=== PATIENT | male | born 1985 | race Caucasian/White ===

== ENCOUNTER 2017-07-12 14:28 | Inpatient (IN) | payer OTHER ==
[~2017-07-12] VITALS: Ht 180.3 cm; Wt 66.2 kg
[2017-07-12] MEDS ORDERED: LORAZEPAM 1 MG TABLET PO PRN ×2 (19:00)
[2017-07-12] MEDS ORDERED: MIRALAX 17 GM POWD.PACK PO PRN (19:00)
[2017-07-12] MEDS ORDERED: MAG HYDROX/AL HYDROX/SIMETH 30 ML LIQUID UDC PO PRN (19:00)
[2017-07-12] MEDS ORDERED: ACETAMINOPHEN 325 MG TABLET PO PRN (19:00)
[2017-07-12] MEDS ORDERED: CLONIDINE HCL 0.1 MG TABLET PO PRN (19:00)
[2017-07-12] MEDS ORDERED: LORAZEPAM 2 MG/1 ML VIAL IM PRN (19:00)
[2017-07-12] MEDS ORDERED: MAGNESIUM HYDROXIDE 30 ML LIQUID UDC PO PRN (19:00)
[2017-07-12] MEDS ORDERED: diphenhydrAMINE 50 MG CAPSULE PO PRN (19:00)
[2017-07-12] MEDS ORDERED: ONDANSETRON 4 MG/2 ML VIAL IM PRN (19:00)
[2017-07-12] MEDS ORDERED: ONDANSETRON ODT 4 MG TAB.RAPDIS SL PRN (19:00)
[2017-07-12] MEDS ORDERED: LOPERAMIDE HCL 2 MG CAPSULE PO PRN ×2 (19:00)
[2017-07-12] MEDS ORDERED: DICYCLOMINE HCL 20 MG TABLET PO PRN (19:00)
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
--- NOTE | 2017-07-12 19:53 | NUR ---
1951 ADMISSION NOTE: Patient admitted ambulatory, to [facility], Room # 311, after being given a brief tour of floor and kitchen, by PLUMBING ENGINEER. Patient's gait is steady. Patient is 5 feet and 11 inches tall and he weighs 146 lbs. Patient is admitted for Alcohol Withdrawal and he states that he has been drinking " a handle of Vodka (1.75ml) everyday for the past 4 months. Patient states that his last drink was 1 pint of Vodka this morning(07/12/17). Patient states that he has been drinking on and off since age 15 and he began to drink steadily a few years ago. Patient states that his longest period of sobriety was about 6 months, in 2012. Vital signs are: 98.5-102-18 128/92, CIWA 3. Patient's color is slightly pale pink and his skin is clean, warm, dry and intact. Patient states that he " feels safe here" at [facility] with " a more controlled-like environment here". Patient states that he was recently in [facility] in [place], [place] for 1 day, on 07/09/17, " in the psych [facility], but I left after one day there". Patient states that his only official detox treatment was in October, for 10 days, in [place], [place] at " [facility]". Patient's medications brought from his home were reconciled per floor protocol. Patient oriented to his room and nurse call light. Patient saw Dr. Moss in [facility] Intake room. See PREADMISSION NOTE for complete patient admit information.
[2017-07-12 20:00] VITALS: BP 128/92
[2017-07-12] MEDS ORDERED: hydrALAZINE HCL 50 MG TABLET PO PRN (20:00)
--- NOTE | 2017-07-12 20:48 | NUR ---
MARGARETH Lewis Pt reports right sided flank pain 01/29. MARGARETH Richardsrin administered. Addendum: 07/14/17 at 0642 by TAHIR PAGAN RN Disregard - Incorrect date.
[2017-07-12] MEDS ORDERED: LORAZEPAM 1 MG TABLET PO ONE (21:00)
[2017-07-12] MEDS ORDERED: THIAMINE HCL 200 MG/2 ML VIAL IM ONE (21:00)
[2017-07-12] MEDS: LEVETIRACETAM 500 MG TABLET PO SCH (21:19)
[2017-07-12] MEDS: GABAPENTIN 300 MG CAPSULE PO SCH (21:19)
[2017-07-12 22:21] LABS: *AMPHETAMINE, URINE NEGATIVE (NEGATIVE); *BARBITURATE, URINE NEGATIVE (NEGATIVE); *CANNABINOID, URINE NEGATIVE (NEGATIVE); *COCCAINE, URINE NEGATIVE (NEGATIVE); *OPIATE, URINE NEGATIVE (NEGATIVE); *PHENCYCLIDINE SCREEN,URINE NEGATIVE (NEGATIVE)
[2017-07-12] MEDS ORDERED: LISI-607 PO (23:37)
[2017-07-12] MEDS ORDERED: TRAZ-147 PO (23:37)
[2017-07-12] MEDS ORDERED: PIOG15TA8 PO (23:37)
[2017-07-12] MEDS ORDERED: LEVE500T20 PO (23:37)
[2017-07-12] MEDS ORDERED: GABA-534 PO (23:37)
[2017-07-12] MEDS ORDERED: TRAM50TA2 PO (23:37)
[2017-07-12] MEDS ORDERED: TRAZ-144 PO (23:37)
[2017-07-12] MEDS ORDERED: CITA20TA11 PO (23:37)
[2017-07-12] MEDS ORDERED: HYDR-3326 PO (23:37)
[2017-07-12] MEDS ORDERED: METF10002 PO (23:37)
[2017-07-13] VITALS: BP 106/68
[2017-07-13 00:03] LABS: BASOPHILS % (AUTO) 0.6 % (0.0-2.0); EOSINOPHILS % (AUTO) 0.8 % (0.0-7.0); HEMATOCRIT 35.7 % (40-50); LYMPHOCYTES # (AUTO) 1.9 K/UL (0.8-4.8); LYMPHOCYTES % (AUTO) 50.3 % (20.5-51.5); MEAN CORPUSCULAR HEMOGLOBIN 32.1 UUG (27.0-31.0); MEAN CORPUSCULAR HGB CONC 34 g/dL (32.0-37.0); MEAN CORPUSCULAR VOLUME 95.9 FL (82.0-92.0); MONOCYTES # (AUTO) 0.3 K/UL (0.1-1.30); MONOCYTES % (AUTO) 7.9 % (0.0-11.0); NEUTROPHILS # (AUTO) 1.5 K/UL (1.8-8.9); NEUTROPHILS % (AUTO) 40.4 % (38.5-71.5); PLATELET COUNT (AUTO) 104 K/UL (150-450); RED BLOOD CELL COUNT(AUTO) 3.72 MIL/UL (4.7-6.1); WHITE BLOOD COUNT (AUTO) 3.7 K/UL (4.0-11.2)
[2017-07-13 00:15] LABS: BILIRUBIN,TOTAL 0.6 mg/dL (0.2-1.0); CREATININE 0.8 mg/dL (0.6-1.3); MAGNESIUM 1.3 mg/dL (1.8-2.4); POTASSIUM 3.9 mmol/L (3.5-5.1); TOTAL PROTEIN, SERUM 6.2 g/dL (6.4-8.2)
[2017-07-13 04:00] VITALS: BP 114/71
--- NOTE | 2017-07-13 04:00 | NUR ---
V/S are: 97.8-81-12 114/71, O2 Sat 96%, CIWA 1. Patient sleeping comfortably.
--- NOTE | 2017-07-13 06:30 | NUR ---
0630 Patient slept a total of 9 hours and he had 1 void and no stools. Total intake was 590 ml p.o. No prn medications given this shift. V/SS afebrile, last CIWA 1 at 0400. Patient is presently sleeping comfortably in stable condition with eyes closed and respirations even at 112.
--- NOTE | 2017-07-13 07:05 | NUR ---
Patient sleeping soundly. CIWA deferred as CIWA ordered Q 4hrs while awake.
--- NOTE | 2017-07-13 07:29 | NUR ---
Accucheck results via fingerstick is 225.
[2017-07-13 08:00] VITALS: BP 113/79
--- NOTE | 2017-07-13 08:00 | NUR ---
VSS 98.3-72-18 TO 22 BP 113/79. SATS 98% ON ROOM AIR. COLOR GOOD. A&O X 3 WITH NOTABLE NERVOUSNESS AND RESTLESS. PATIENT IS SELF MANAGING HIS ANXIETY AND WAITING PATIENTLY NURSE COMPLETES NURSING TASKS AND ASSESSMENTS. PATIENT MAKES GOOD EYE TO EYE CONTACT. OOB WITH SELF CARE AND ADLS WITHOUT ASSIST. ATE ONLY 15% ON BREAKFAST WITH NAUSEA AND SPIT-LIKE EMESIS X 1. CIWA=27. PHYSICIAN PERFORMING HIS OWN CIWA EXAM WELL.
[2017-07-13] MEDS ORDERED: TUBERCULIN,PURIF.PROT.DERIV. 5 TU/0.1 ML TEST ID ONE (09:00)
[2017-07-13] MEDS: METFORMIN HCL 500 MG TABLET PO SCH ×2 (10:23→17:12)
[2017-07-13] MEDS: LEVETIRACETAM 500 MG TABLET PO SCH ×2 (10:24→20:45)
[2017-07-13] MEDS: FOLIC ACID 1 MG TABLET PO SCH (10:24)
--- NOTE | 2017-07-13 10:24 | NUR ---
NURSE PLACED PPD TO RIGHT INNER FOREARM. TOOL PUSHER=ROSARIO, LOT #[id number], EXP=10/10. PATIENT GIVEN EDUCATION ON THE VACCINE AND FACT THAT THE NURSES WILL RE-READ HIS TEST IN 48 HOURS. NURSE GIVEN THE INSTRUCTION TO REPORT ANY ERUPTION, BLEEDING, DRAINAGE, OR ANY OTHER IRREGULARITIES IN THE SITE. Addendum: 07/13/17 at 1125 by CHRISTIAN GRUBBS RN NURSE ALSO SPOKE WITH AN ADULT FEMALE ON THE PHONE WHO CLAIMED TO BE THIS PATIENT'S MOTHER. NURSE HAD TO TELL PATIENT THAT VERBAL REPORT IS LIMITED DUE TO HIPPA LAWS. PATIENT WAS PLEASANT, COOPERATIVE AND RESPONDED WELL TO THIS REPORT. PATIENT WAS ALSO INFORMED OF THIS PHONE CALL. PATIENT SHOWS NO SIGNS OF ACUTE CARDIAC/RESPIRATORY DISTRESS OR SUPPRESSION.
[2017-07-13] MEDS: MULTIVITAMINS,THERAPEUTIC TABLET PO SCH (10:25)
[2017-07-13] MEDS: LORAZEPAM 1 MG TABLET PO SCH ×4 (10:25→20:44)
[2017-07-13] MEDS: LISINOPRIL 10 MG TABLET PO SCH (10:26)
[2017-07-13] MEDS: THIAMINE HCL 100 MG TABLET PO SCH (10:27)
[2017-07-13] MEDS: PIOGLITAZONE HCL 15 MG TABLET PO SCH (10:33)
[2017-07-13] MEDS: GABAPENTIN 300 MG CAPSULE PO SCH ×3 (10:33→20:46)
[2017-07-13 12:00] VITALS: BP 141/82
--- NOTE | 2017-07-13 12:00 | NUR ---
VSS 97.8-84 22 BP 141/82. SATS 98% ON ROOM AIR. PATIENT ATTENDS MULTIPLE ACTIVITIES BUT IS SEEN FREQUENTLY IN STABLE CONDITION. PATIENT SHOWS NO SIGNS OF ACUTE WITHDRAWAL. NO SIGNS OF ACUTE CARDIAC/RESPIRATORY DISTRESS OR SUPPRESSION.
[2017-07-13] MEDS: CITALOPRAM 20 MG TABLET PO SCH (13:51)
[2017-07-13 16:00] VITALS: BP 135/97
--- NOTE | 2017-07-13 16:00 | NUR ---
VSS 98.6-110-20 BP 135/97. SATS 98% ON ROOM AIR. COLOR GOOD. PATIENT IS ALERT & ORIENTED. PATIENT HAS BEEN ATTENDING ACTIVITIES ALL DAY AND HIS GENERAL APPEARANCE HAS IMPROVED. HE APPEARS MORE AT EASE AND HIS COLOR IS FAR BETTER THAN THE START OF SHIFT THE PATIENT'S CIWA WENT FROM 27 IN THE MORNING TO 21 @ 16:00. PATIENT SHOWS NO SIGNS OF ACUTE CARDIAC/RESPIRATORY DISTRESS OR SUPPRESSION.
[2017-07-13] MEDS ORDERED: TRAZODONE 100 MG TABLET PO SCH (18:00)
[2017-07-13] MEDS ORDERED: TRAZODONE 50 MG TABLET PO SCH (18:00)
--- NOTE | 2017-07-13 19:55 | NUR ---
START OF SHIFT Received report from day shift nurse. Pt attended a group meeting and returned to his room after. He is a 31 yo male admitted to [facility] on 07/12 for ETOH withdrawal. He is A&O x4 and ambulatory. NKA, full code status, and on a consistent carb diet. PMH of DM Type II, HTN, neuropathy, seizure disorder, herniated disc, anxiety, and depression. On admission he reported drinking vodka 1.75mL per day. 5 day Ativan taper started today. He reports anxiety, one episode of vomiting after dinner, sweating, and is observed with hand tremors. No s/s of hyper/hypoglycemia. Taper due tonight. Fall and seizure precautions in place. Bed is down with call light in reach. Addendum: 07/14/17 at 2340 by TAHIR PAGAN RN Correction: Pt drinks 1.75L per day.
[2017-07-13 20:00] VITALS: BP 138/96
[2017-07-13] MEDS ORDERED: LORAZEPAM 1 MG TABLET PO PRN ×2 (20:00)
--- NOTE | 2017-07-13 20:16 | NUR ---
Mag Ox 800mg administered per orders
[2017-07-13] MEDS: TRAZODONE 100 MG TABLET PO SCH (20:45)
[2017-07-13] MEDS: IBUPROFEN 400 MG TABLET PO PRN (20:46)
--- NOTE | 2017-07-13 20:48 | NUR ---
PRN Motrin Pt reports right sided flank pain 01/29. PRN Motrin administered.
--- NOTE | 2017-07-13 20:50 | NUR ---
PRN Zofran Pt reports one episode of vomiting after dinner and continued nausea.
[2017-07-13] MEDS ORDERED: MAGNESIUM OXIDE 400 MG TABLET PO ONE (21:00)
--- NOTE | 2017-07-13 21:20 | NUR ---
PRN Zofran reassessment PRN Zofran effective. Pt reports nausea is relieved.
--- NOTE | 2017-07-13 21:48 | NUR ---
PRN Motrin reassessment PRN Motrin effective. Pt reports right side flank pain is reduced to 2/10.
[2017-07-14] VITALS: BP 107/70
--- NOTE | 2017-07-14 | NUR ---
0000 CIWA deferred CIWA ordered Q4HWA. Pt is lying in bed resting with eyes closed. Respirations even and unlabored. Vital signs obtained. Safety measures in place.
[2017-07-14 04:00] VITALS: BP 100/66
--- NOTE | 2017-07-14 04:00 | NUR ---
0400 CIWA deferred CIWA ordered Q4HWA. Pt is lying in bed resting with eyes closed. Respirations even and unlabored. Vital signs obtained. Safety measures in place.
--- NOTE | 2017-07-14 07:00 | NUR ---
Start of Shift Endorsement received from nightshift nurse. Pt is a 31 y/o male admitted for alcohol dependence. Pt has been placed on a 5 day Ativan taper. Pt reports Hx of a seizures. Pt is tolerating the taper and moderately withdrawing AEB CIWA 7. Pt reports sleeping 8 hours. PT received PRN Zofran and Motrin. VS WNL. Full Code. PT is alert and oriented x4. Pt is in STABLE condition at this time. Remains compliant with medication and diet regimen. All needs have been met, All safety measures in place per hospital policy. Bed in lowest position, side rails up x2, call-light within reach. Will continue to monitor
[2017-07-14 07:06] LABS: HEPATITIS B SURFACE AG Negative (Negative)
--- NOTE | 2017-07-14 07:22 | NUR ---
END OF SHIFT Report provided to day shift nurse. Pt is lying in bed resting. He is a 31 yo male admitted to [facility] on 07/12 for ETOH withdrawal. He is A&O and ambulatory. NKA, full code status, and on a consistent carb diet. PMH of DM Type II, HTN, neuropathy, seizure disorder, herniated disc, anxiety, and depression. On admission he reported drinking vodka 1.75mL per day. 5 day Ativan taper started today. He is compliant with treatment. PRN Motrin and Zofran administered. Last CIWA 7 before night meds. No s/s of hyper/hypoglycemia. Mag Ox administered per orders. He is observed with facial flushing. He drank 355mL and slept for 8 hours. Fall and seizure precautions in place. Bed is down with call light in reach.
[2017-07-14 07:38] LABS: BASOPHILS % (AUTO) 0.2 % (0.0-2.0); EOSINOPHILS # (AUTO) 0.1 K/uL (0.0-0.7); EOSINOPHILS % (AUTO) 3.5 % (0.0-7.0); HEMATOCRIT 36.9 % (40-50); HEMOGLOBIN 12.3 G/DL (14.0-18.0); LYMPHOCYTES # (AUTO) 1.6 K/UL (0.8-4.8); LYMPHOCYTES % (AUTO) 47.1 % (20.5-51.5); MEAN CORPUSCULAR HEMOGLOBIN 31.9 UUG (27.0-31.0); MEAN CORPUSCULAR HGB CONC 33 g/dL (32.0-37.0); MEAN CORPUSCULAR VOLUME 95.7 FL (82.0-92.0); MONOCYTES # (AUTO) 0.3 K/UL (0.1-1.30); MONOCYTES % (AUTO) 9.1 % (0.0-11.0); NEUTROPHILS # (AUTO) 1.3 K/UL (1.8-8.9); NEUTROPHILS % (AUTO) 40.1 % (38.5-71.5); PLATELET COUNT (AUTO) 82 K/UL (150-450); RED BLOOD CELL COUNT(AUTO) 3.86 MIL/UL (4.7-6.1); WHITE BLOOD COUNT (AUTO) 3.3 K/UL (4.0-11.2)
[2017-07-14 08:00] VITALS: BP 105/66
[2017-07-14 08:30] LABS: ALANINE AMINOTRANSFERASE 44 U/L (16-63); ALKALINE PHOSPHATASE 76 U/L (50-136); ASPARTATE AMINOTRANSFERASE 77 U/L (15-37); BILIRUBIN,DIRECT 0.3 mg/dL (0.0-0.2); CARBON DIOXIDE 31 mmol/L (21-32); CHLORIDE 99 mmol/L (98-107); CREATININE 0.6 mg/dL (0.6-1.3); GLUCOSE 215 mg/dL (74-106); MAGNESIUM 1.5 mg/dL (1.8-2.4); PHOSPHOROUS 4.5 mg/dL (2.5-4.9); POTASSIUM 3.5 mmol/L (3.5-5.1); TOTAL PROTEIN, SERUM 6.3 g/dL (6.4-8.2); UREA NITROGEN, BLOOD 10 mg/dL (7-18)
[2017-07-14] MEDS: PIOGLITAZONE HCL 15 MG TABLET PO SCH (08:32)
[2017-07-14] MEDS: GABAPENTIN 300 MG CAPSULE PO SCH ×3 (08:33→20:21)
[2017-07-14] MEDS: LORAZEPAM 1 MG TABLET PO SCH ×3 (08:33→20:18)
[2017-07-14] MEDS: LISINOPRIL 10 MG TABLET PO SCH (08:33)
[2017-07-14] MEDS: CITALOPRAM 20 MG TABLET PO SCH (08:33)
[2017-07-14] MEDS: THIAMINE HCL 100 MG TABLET PO SCH (08:33)
[2017-07-14] MEDS: MULTIVITAMINS,THERAPEUTIC TABLET PO SCH (08:33)
[2017-07-14] MEDS: LEVETIRACETAM 500 MG TABLET PO SCH ×2 (08:33→20:20)
[2017-07-14] MEDS: METFORMIN HCL 500 MG TABLET PO SCH ×2 (08:34→18:12)
[2017-07-14] MEDS: FOLIC ACID 1 MG TABLET PO SCH (08:34)
[2017-07-14 09:09] LABS: BAND % (MANUAL) 1 % (0-10); EOSINOPHILS % (MANUAL) 2 % (0-8); LYMPHOCYTES % (MANUAL) 47 % (20-40); MONOCYTES % (MANUAL) 7 % (2-10); NEUTROPHILS % (MANUAL) 43 % (42-75)
[2017-07-14 12:00] VITALS: BP 129/86
[2017-07-14] MEDS ORDERED: LORAZEPAM 1 MG TABLET PO ONE (13:00)
[2017-07-14] MEDS ORDERED: MAGNESIUM OXIDE 400 MG TABLET PO ONE (13:15)
--- NOTE | 2017-07-14 13:20 | NUR ---
Therapist was prompted to come to group today. Client agreed to attend.
[2017-07-14] MEDS: MAGNESIUM OXIDE 400 MG TABLET PO SCH ×2 (15:23→20:20)
[2017-07-14 16:00] VITALS: BP 124/93
--- NOTE | 2017-07-14 18:51 | NUR ---
End of Shift Endorsement given to nightshift nurse. Pt is a 31 y/o male admitted for alcohol dependence. Pt has been placed on a 5 day Ativan taper. Pt reports Hx of a seizures. Pt is tolerating the taper and moderately withdrawing AEB CIWA 5. Pt participated in groups and activities. PT did not receive any PRN medications. Educated pt on diet and medication regimen. Intake: 1950ml, Void x4, BM x1. VS WNL. Full Code. PT is alert and oriented x4. Pt is in STABLE condition at this time. Remains compliant with medication and diet regimen. All needs have been met, All safety measures in place per hospital policy. Bed in lowest position, side rails up x2, call-light within reach. Will continue to monitor
--- NOTE | 2017-07-14 19:55 | NUR ---
START OF SHIFT Received report from day shift nurse. Pt attended a group meeting and returned to his room after. He is a 31 yo male admitted to [facility] on 07/12 for ETOH withdrawal. He is A&O x4 and ambulatory. NKA, full code status, and on a consistent carb diet. PMH of DM Type II, HTN, neuropathy, seizure disorder, herniated disc, anxiety, and depression. On admission he reported drinking vodka 1.75mL per day. 5 day Ativan taper started 07/13. No s/s of hyper/hypoglycemia. He expresses worry and anxiety about the future. He is observed with tremors and facial flushing. Provided support and encouragement. Taper due tonight. Fall and seizure precautions in place. Bed is down with call light in reach. Addendum: 07/14/17 at 2340 by TAHIR PAGAN RN Correction: Pt drinks 1.75L per day.
[2017-07-14 20:00] VITALS: BP 132/64
[2017-07-14] MEDS: TRAZODONE 100 MG TABLET PO SCH (20:20)
[2017-07-14] MEDS: IBUPROFEN 400 MG TABLET PO PRN (20:21)
--- NOTE | 2017-07-14 20:22 | NUR ---
PRN Motrin Pt reports headache 12/29. PRN Motrin administered.
[2017-07-15] VITALS: BP 134/99
--- NOTE | 2017-07-15 00:11 | NUR ---
PRN Clonidine and Tylenol Pt reports continued headache. He also reports anxiety, racing thoughts, and inability to sleep. PRN Tylenol and Clonidine administered. B/P 134/99. CIWA 8. PRN Clonidine and Tylenol administered.
--- NOTE | 2017-07-15 01:11 | NUR ---
PRN Clonidine and Tylenol reassessment PRN Clonidine and Tylenol effective. Pt is lying in bed resting with eyes closed. Respirations even and unlabored. Safety measures in place.
--- NOTE | 2017-07-15 04:00 | NUR ---
0400 Vitals refused/CIWA deferred Pt refused to be woken for 0400 vitals. He is lying in bed resting with eyes closed. Respirations even and unlabored. CIWA ordered Q4HWA. Safety measures in place.
--- NOTE | 2017-07-15 07:19 | NUR ---
END OF SHIFT Report provided to day shift nurse. Pt is lying in bed resting. He is a 31 yo male admitted to [facility] on 07/12 for ETOH withdrawal. He is A&O x4 and ambulatory. NKA, full code status, and on a consistent carb diet. PMH of DM Type II, HTN, neuropathy, seizure disorder, herniated disc, anxiety, and depression. On admission he reported drinking vodka 1.75L per day. 5 day Ativan taper started 07/13. No s/s of hyper/hypoglycemia. He was experiencing some anxiety about his future. PRN Motrin, Tylenol, and Clonidine administered. Last CIWA was 8 before PRN's. He slept after. Pt drank 1000mL and slept for 7 hours. Fall and seizure precautions in place. Bed is down with call light in reach.
[2017-07-15 08:02] VITALS: BP 133/103
--- NOTE | 2017-07-15 08:05 | NUR ---
START OF SHIFT: RECEIVED PT A/O X 4. HE PRESENTS WITH ANXIOUS MOOD AND CONGRUENT AFFECT. HE REPORTS ANXIETY,RESTLESSNESS,POOR SLEEP LAST NIGHT AND DEPRESSION. HE DENIES S/I AND H/I. CIWA 6. ATIVAN TAPER IN PROGRESS TO MANAGE S/S OF W/D. PRN APRESOLINE GIVEN FOR BP 133/103. WILL CONTINUE TO MONITOR AND OFFER SUPPORT.
[2017-07-15] MEDS: THIAMINE HCL 100 MG TABLET PO SCH (08:19)
[2017-07-15] MEDS: LEVETIRACETAM 500 MG TABLET PO SCH ×2 (08:19→20:27)
[2017-07-15] MEDS: METFORMIN HCL 500 MG TABLET PO SCH ×2 (08:19→17:22)
[2017-07-15] MEDS: PIOGLITAZONE HCL 15 MG TABLET PO SCH (08:19)
[2017-07-15] MEDS: LORAZEPAM 1 MG TABLET PO SCH ×3 (08:19→17:22)
[2017-07-15] MEDS: FOLIC ACID 1 MG TABLET PO SCH (08:19)
[2017-07-15] MEDS: GABAPENTIN 300 MG CAPSULE PO SCH ×3 (08:20→20:27)
[2017-07-15] MEDS: CITALOPRAM 20 MG TABLET PO SCH (08:20)
[2017-07-15] MEDS: LISINOPRIL 10 MG TABLET PO SCH (08:20)
[2017-07-15] MEDS: MULTIVITAMINS,THERAPEUTIC TABLET PO SCH (08:20)
[2017-07-15 12:00] VITALS: BP 127/89
[2017-07-15 16:00] VITALS: BP 141/79
--- NOTE | 2017-07-15 18:36 | NUR ---
END OF SHIFT: PT CONTINUES ON ATIVAN TAPER. LAST CIWA 6. HE REPORTS SOME ANXIETY AND STATES HIS ENERGY LEVEL IS LOW.HE ATTENDED GROUPS AND RESTED IN BED IN BETWEEN GROUPS.PT IS COMPLIANT WITH MEDS. HE STATES DETOX MEDS ARE EFFECTIVE. NO PRNS GIVEN ON THIS SHIFT.
--- NOTE | 2017-07-15 19:05 | NUR ---
Start of Shift Patient Received. Patient is noted in activities room participating in group activities. Patient is a 31 year old male admitted on 07/12/17 for ETOH Dependence under the care of Dr. Moss. Patient is currently receiving a 5 day Ativan taper. No known allergies verbalized, wishes to be full code, following a regular diet, placed on fall and seizure precautions. Past medical history noted as Anxiety, Depression, DM II, History of seizures, HTN, Neuropathy of Bilateral feet. Per endorsement, Patient is noted to be withdrawn despite multiple attempts to encourage patient to participate in social activities. Last noted CIWA 6. All needs attended to promptly. Will continue to monitor.
[2017-07-15 20:25] VITALS: BP 129/96
[2017-07-15] MEDS: TRAZODONE 100 MG TABLET PO SCH (20:27)
[2017-07-15] MEDS ORDERED: LORAZEPAM 1 MG TABLET PO SCH (21:00)
[2017-07-16 00:30] VITALS: BP 121/79
[2017-07-16 04:00] VITALS: BP 123/79
--- NOTE | 2017-07-16 07:11 | NUR ---
End of Shift Patient is in his bed sleeping. Breathing even and non labored. No signs of pain or discomfort noted. Patient is a 31 year old male admitted on 07/12/17 for ETOH Dependence and is currently receiving a 5 day Ativan taper. No known allergies verbalized, Full Code, Regular Diet, placed on fall and seizure precautions. Past medical history noted as Anxiety, Depression, DM II, History of seizures, HTN, Neuropathy of Bilateral feet. No PRN Medications. Last noted CIWA 9. All needs attended to promptly. Will endorse to continue to monitor.
--- NOTE | 2017-07-16 07:12 | NUR ---
Start of Shift Notes: Received patient in his room. Alert, awake and verbally responsive. Oriented x 4. Able to make his needs known. Respirations even and unlabored. No SOB noted. Skin warm and dry to touch. Abdomen soft and non-distended. BS (+) in all 4 quadrants. No complains of N/V/D or constipation noted. Voids independently. Ambulatory ad allan with steady gait. Patient is a 31 year old male admitted for ETOh dependence who was placed on a 5-day Ativan taper as ordered. No adverse reactions noted. Has past medical hx of anxiety, depression, DM 2, HTN, neuropathy, bipolar disorder and seizure disorder. NKA. FULL CODE. Regular diet. On fall and seizure precautions. Encouraged oral fluid intake and encouraged group participation to learn new skills to prevent relapse. Will continue to monitor closely.
[2017-07-16 08:00] VITALS: BP 129/91
[2017-07-16] MEDS: GABAPENTIN 300 MG CAPSULE PO SCH ×3 (08:16→20:49)
[2017-07-16] MEDS: METFORMIN HCL 500 MG TABLET PO SCH ×2 (08:16→17:00)
[2017-07-16] MEDS: LEVETIRACETAM 500 MG TABLET PO SCH ×2 (08:16→20:49)
[2017-07-16] MEDS: PIOGLITAZONE HCL 15 MG TABLET PO SCH (08:16)
[2017-07-16] MEDS: IBUPROFEN 400 MG TABLET PO PRN (08:16)
[2017-07-16] MEDS: LISINOPRIL 20 MG TABLET PO SCH (08:17)
[2017-07-16] MEDS: MULTIVITAMINS,THERAPEUTIC TABLET PO SCH (08:17)
[2017-07-16] MEDS: THIAMINE HCL 100 MG TABLET PO SCH (08:17)
[2017-07-16] MEDS: CITALOPRAM 20 MG TABLET PO SCH (08:17)
[2017-07-16] MEDS: LORAZEPAM 1 MG TABLET PO SCH ×3 (08:17→20:49)
[2017-07-16] MEDS: FOLIC ACID 1 MG TABLET PO SCH (08:17)
--- NOTE | 2017-07-16 08:17 | NUR ---
Motrin PO given: Patient complained of 6/10 low back pain. Denies any trauma to the area. Heat packs applied with no relief. Medicated patient with Motrin as ordered. Will monitor for effectiveness.
--- NOTE | 2017-07-16 09:17 | NUR ---
Re-assessment: Per patient, PRN Motrin was effective in reducing low back pain. PL 10/29.
--- NOTE | 2017-07-16 10:33 | NUR ---
Psych MD Communication: Patient currently on Trazodone 225 mg PO for sleep. Patient reports, he usually takes 300 mg PO at home and current dose taken during his stay here is not effective causing him to be more agitated and isolative during the day. Informed Dr. Johns. Dr. Johns requested for med to be verified with the pharmacy that patient uses at [place] which is [facility] ([phone], spoke with Nathaly and verified that patient's current Trazodone prescription is 300 mg PO at [facility] while at home. Informed Dr. Johns. Per MD, he will come and speak to the patient.
[2017-07-16 12:00] VITALS: BP 131/88
[2017-07-16 16:00] VITALS: BP 130/84
[2017-07-16] MEDS: glipiZIDE 5 MG TABLET PO SCH (16:57)
--- NOTE | 2017-07-16 19:00 | NUR ---
Start of Shift Patient received. Patient is in activities room participating in group activities. Patient is a 31 year old male admitted on 07/12/17 for ETOH Dependence and is currently receiving a 5 day Ativan taper. No known allergies verbalized, Full Code, Regular Diet, placed on fall and seizure precautions. Past medical history noted as Anxiety, Depression, DM II, History of seizures, HTN, Neuropathy of Bilateral feet. Per endorsement, patient was given PRN Motrin with medication noted to be effective. Patient was seen and evaluated with new order for Trazodone 300mg. Last noted CIWA 3. All needs attended to promptly. Will continue to monitor.
--- NOTE | 2017-07-16 19:16 | NUR ---
End of Shift Notes: Patient continues to be on 5-day Ativan taper as ordered. No adverse reactions noted. Tolerating taper well. VS monitored closely. No significant abonrmalities noted. Withdrawal symptoms were closely monitored. Initial CIWA 8, patient presented with sweating, anxiety and agitation. Last CIWA 3. Medicated patient with Motrin 400 mg PO as ordered for low back pain with help after [address] Johns adjusted patient's Trazadone. Patient education provided. Compliant with care and treatment. Encouraged to attend group and activities. All needs met and attended. Will continue to monitor.
[2017-07-16 20:22] VITALS: BP 126/92
[2017-07-16] MEDS: TRAZODONE 100 MG TABLET PO SCH (20:49)
[2017-07-17 00:40] VITALS: BP 115/79
[2017-07-17 04:15] VITALS: BP 123/74
[2017-07-17] MEDS: glipiZIDE 5 MG TABLET PO SCH ×2 (06:30→16:57)
--- NOTE | 2017-07-17 07:03 | NUR ---
End of Shift Patient is in bed sleeping. Breathing even and non labored. Patient is a 31 year old male admitted on 07/12/17 for ETOH Dependence and is currently receiving a 5 day Ativan taper. No known allergies verbalized, Full Code, Regular Diet, placed on fall and seizure precautions. Past medical history noted as Anxiety, Depression, DM II, History of seizures, HTN, Neuropathy of Bilateral feet. No PRN Medications administered. Last noted CIWA 5. All needs attended to promptly. Will endorse to continue to monitor.
[2017-07-17 08:00] VITALS: BP 111/71
[2017-07-17] MEDS: MULTIVITAMINS,THERAPEUTIC TABLET PO SCH (08:27)
[2017-07-17] MEDS: PIOGLITAZONE HCL 15 MG TABLET PO SCH (08:27)
[2017-07-17] MEDS: LORAZEPAM 1 MG TABLET PO SCH ×2 (08:27→21:21)
[2017-07-17] MEDS: LEVETIRACETAM 500 MG TABLET PO SCH ×2 (08:27→21:21)
[2017-07-17] MEDS: GABAPENTIN 300 MG CAPSULE PO SCH ×3 (08:27→21:21)
[2017-07-17] MEDS: THIAMINE HCL 100 MG TABLET PO SCH (08:27)
[2017-07-17] MEDS: CITALOPRAM 20 MG TABLET PO SCH (08:27)
[2017-07-17] MEDS: FOLIC ACID 1 MG TABLET PO SCH (08:27)
[2017-07-17] MEDS: LISINOPRIL 20 MG TABLET PO SCH (08:27)
[2017-07-17] MEDS: METFORMIN HCL 500 MG TABLET PO SCH ×2 (08:34→17:00)
[2017-07-17 12:00] VITALS: BP 114/74
[2017-07-17 16:00] VITALS: BP 132/78
--- NOTE | 2017-07-17 19:02 | NUR ---
End of Shift Notes: Patient continues to be on 5-day Ativan taper as ordered. No adverse reactions noted. Tolerating taper well. VS monitored closely. No significant abonrmalities noted. Withdrawal symptoms were closely monitored. Initial CIWA 5, patient presented with anxiety and agitation. Last CIWA 4. Compliant with care and treatment. Encouraged to attend group and activities. All needs met and attended. Will continue to monitor.
--- NOTE | 2017-07-17 19:10 | NUR ---
Start of shift note Received report from day shift nurse. Pt is a 31 yo male, A+Ox4, presenting to [facility] for ETOH dependence. Pt has NKA, is on Full code status, and on Regular diet. Pt is on Fall and Seizure precautions. Pt has HX of Seizure, Anxiety, Depression, DM II, HTN, Neuropathy, and bipolar. Pt is on 5 day Ativan taper, tolerated well. No s/s of distress noted at this time. Respirations even and unlabored. Will continue to monitor.
[2017-07-17 20:31] VITALS: BP 124/83
[2017-07-17] MEDS: TRAZODONE 100 MG TABLET PO SCH (21:21)
[2017-07-18 00:12] VITALS: BP 121/77
[2017-07-18 04:22] VITALS: BP 124/79
--- NOTE | 2017-07-18 07:00 | NUR ---
End of shift note Pt is a 31 yo male, A+Ox4, presenting to [facility] for ETOH dependence. Pt has NKA, is on Full code status, and on Regular diet. Pt is on Fall and Seizure precautions. Pt has HX of Seizure, Anxiety, Depression, DM II, HTN, Neuropathy, and bipolar. Pt is on 5 day Ativan taper, tolerated well. Pt slept for a total of 7 HRS. Last CIWA: 2 @0400. No s/s of distress noted at this time. Respirations even and unlabored. Will endorse to day shift nurse.
[2017-07-18] MEDS: glipiZIDE 5 MG TABLET PO SCH ×2 (07:46→16:59)
[2017-07-18] MEDS: METFORMIN HCL 500 MG TABLET PO SCH ×2 (07:46→16:59)
[2017-07-18 08:00] VITALS: BP 90/60
--- NOTE | 2017-07-18 08:00 | NUR ---
START OF SHIFT: RECEIVED PT A/O X 4. HE PRESENTS WITH ANXIOUS MOOD AND RESTRICTED AFFECT. FINE TREMORS NOTED. HE REPORTS ANXIETY AND DEPRESSION. HE DENIES S/I AND H/I. CIWA 3. ATIVAN TAPER IN PROGRESS TO MANAGE S/S OF W/D. BP LOW 90/60. HELD LISINOPRIL. ENCOURAGED GROUP ATTENDANCE TO IMPROVE COPING SKILLS AND PREVENT RELAPSE.WILL CONTINUE TO MONITOR AND OFFER SUPPORT.
[2017-07-18] MEDS: LISINOPRIL 20 MG TABLET PO SCH (09:00)
[2017-07-18] MEDS ORDERED: LORAZEPAM 1 MG TABLET PO SCH (09:00)
[2017-07-18] MEDS: PIOGLITAZONE HCL 15 MG TABLET PO SCH (09:12)
[2017-07-18] MEDS: MULTIVITAMINS,THERAPEUTIC TABLET PO SCH (09:12)
[2017-07-18] MEDS: LEVETIRACETAM 500 MG TABLET PO SCH ×2 (09:12→22:02)
[2017-07-18] MEDS: GABAPENTIN 300 MG CAPSULE PO SCH ×3 (09:12→22:02)
[2017-07-18] MEDS: FOLIC ACID 1 MG TABLET PO SCH (09:13)
[2017-07-18] MEDS: CITALOPRAM 20 MG TABLET PO SCH (09:13)
[2017-07-18] MEDS: THIAMINE HCL 100 MG TABLET PO SCH (09:14)
[2017-07-18 12:00] VITALS: BP 113/78
[2017-07-18 16:00] VITALS: BP 127/88
--- NOTE | 2017-07-18 18:48 | NUR ---
END OF SHIFT: PT COMPLETED ATIVAN TAPER. LAST CIWA 3. HE REPORTS SOME INTERMITTENT ANXIETY. HE ATTENDED GROUPS.PT IS COMPLIANT WITH MEDS. DISCHARGE PLANNING IN PROGRESS. NO PRNS GIVEN ON THIS SHIFT. WILL PASS SHIFT REPORT TO ONCOMING NIGHT NURSE
--- NOTE | 2017-07-18 19:15 | NUR ---
Start of Shift Note: Patient is a 31 y.o male admitted on 07/12/17 for ETOH dependence. Patient has PMHx of Anxiety, depression, DM II, Seizure disorder, HTN, Neuropathy. Patient is vaughn regular diet with no known food and drug allergies. Full Code status. Seizure and Fall precaution noted. Skin intact. Pateint completed his Ativan taper and he is scheduled to be discharge tomorrow. Last CIWA is 3. No PRN medications given during day shift. Patient is alert & oriented x4. Patient is ambulatory with a steady gait. Patient is stable. No shortness of breath noted. Respiration even & unlabored. Abdomen soft & non-distended. No nausea/vomiting noted. Safety measures in place. bed locked in lowest position. Both side rails up. Call light within pt's reach. Will continue to monitor patient.
[2017-07-18 20:00] VITALS: BP 120/86
[2017-07-18] MEDS ORDERED: TRAZ-147 PO (21:44)
[2017-07-18] MEDS ORDERED: GLIP5TAB13 PO (21:44)
[2017-07-18] MEDS ORDERED: LEVE500T9 PO (21:44)
[2017-07-18] MEDS ORDERED: GABA-534 PO (21:44)
[2017-07-18] MEDS ORDERED: CLON0.1T14 PO (21:44)
[2017-07-18] MEDS ORDERED: CITA20TA19 PO (21:44)
[2017-07-18] MEDS ORDERED: METF500T4 PO (21:44)
[2017-07-18] MEDS ORDERED: LISI-603 PO (21:44)
[2017-07-18] MEDS ORDERED: PIOG15TA8 PO (21:44)
[2017-07-18] MEDS: TRAZODONE 100 MG TABLET PO SCH (22:04)
[2017-07-19] VITALS: BP 118/76
[2017-07-19] MEDS: glipiZIDE 5 MG TABLET PO SCH (06:53)
--- NOTE | 2017-07-19 07:14 | NUR ---
End of Shift Note: Pt had an uneventful night. Patient remains stable and vitals noted WNL. Pt completed scheduled taper and is scheduled to be discharge today. Pt did not received any PRN medications and Last CIWA noted is 3. Pt slept for a total of 6 hours. Fluid intake: 1450ml, Voided 2x with no bowel movement. All needs attended & met. Safety measures in place. Will endorse pt to day shift nurse.
--- NOTE | 2017-07-19 07:55 | NUR ---
START OF SHIFT: RECEIVED PT A/O X 4. HE PRESENTS WITH ANXIOUS MOOD AND RESTRICTED AFFECT. HE REPORTS SOME ANXIETY ABOUT DISCHARGE. CIWA 2. ATIVAN TAPER COMPLETED AND DISCHARGE SCHEDULED FOR THIS AM. WILL CONTINUE WITH DISCHARGE PROCESS.
[2017-07-19 08:00] VITALS: BP 131/85
[2017-07-19] MEDS: GABAPENTIN 300 MG CAPSULE PO SCH (08:20)
[2017-07-19] MEDS: CITALOPRAM 20 MG TABLET PO SCH (08:20)
[2017-07-19] MEDS: MULTIVITAMINS,THERAPEUTIC TABLET PO SCH (08:20)
[2017-07-19] MEDS: THIAMINE HCL 100 MG TABLET PO SCH (08:21)
[2017-07-19] MEDS: LEVETIRACETAM 500 MG TABLET PO SCH (08:21)
[2017-07-19] MEDS: PIOGLITAZONE HCL 15 MG TABLET PO SCH (08:21)
[2017-07-19] MEDS: METFORMIN HCL 500 MG TABLET PO SCH (08:21)
[2017-07-19] MEDS: FOLIC ACID 1 MG TABLET PO SCH (08:21)
[2017-07-19 08:22] VITALS: BP 131/85
[2017-07-19] MEDS: LISINOPRIL 20 MG TABLET PO SCH (08:22)
--- NOTE | 2017-07-19 10:21 | NUR ---
DISCHARGE: PT IS A/O X4. HE DENIES S/I AND H/I. HE STATES HE IS MOTIVATED TO STAY SOBER AND FEELS ENTHUSIASTIC. BELONGINGS RETURNED. EDUCATED PT ON DISCHARGE INSTRUCTIONS AND MEDICATIONS. [facility] BIT ESCORTED PT TO [facility] WHERE HE WAS TRANSPORTED BY [facility] TO [facility] TO CHANGE AT 0940.
== END 2017-07-19 09:40 | disposition other institution (70) | DRG 895 ==
LOC: SRC 18:49
PROVIDERS: ADMIT Internal Medicine; ATTEND Internal Medicine
PROC: HZ2ZZZZ Detoxification Services for Substance Abuse Treatment (ICD-10-PCS; principal; 2017-07-12)
PROC: HZ41ZZZ Group Counseling for Substance Abuse Treatment, Behavioral (ICD-10-PCS; 2017-07-13)
PROC: HZ31ZZZ Individual Counseling for Substance Abuse Treatment, Behavioral (ICD-10-PCS; 2017-07-14)
DX: F10.232 Alcohol dependence with withdrawal with perceptual disturbance (principal); G40.919 Epilepsy, unspecified, intractable, without status epilepticus; D69.6 Thrombocytopenia, unspecified; F33.2 Major depressive disorder, recurrent severe without psychotic features; D70.2 Other drug-induced agranulocytosis; F10.288 Alcohol dependence with other alcohol-induced disorder; E83.42 Hypomagnesemia; F11.10 Opioid abuse, uncomplicated; F17.210 Nicotine dependence, cigarettes, uncomplicated; I15.9 Secondary hypertension, unspecified; D53.9 Nutritional anemia, unspecified; E11.9 Type 2 diabetes mellitus without complications; K70.10 Alcoholic hepatitis without ascites; Y90.7 Blood alcohol level of 200-239 mg/100 ml; Z79.899 Other long term (current) drug therapy; Z79.84 Long term (current) use of oral hypoglycemic drugs; Z81.8 Family history of other mental and behavioral disorders; F41.9 Anxiety disorder, unspecified; F90.9 Attention-deficit hyperactivity disorder, unspecified type; Z81.1 Family history of alcohol abuse and dependence; Z80.9 Family history of malignant neoplasm, unspecified; Z91.89 Other specified personal risk factors, not elsewhere classified; G47.00 Insomnia, unspecified
CPT/HCPCS: 36415; 70030-TC; 80307; 80346; 82746; 83735; 84100; 85025; 86580; 86592; 86705; 86803; 87340; 87806; G0480; J3411; Q0162